=== PATIENT | male | born 1965 | race Caucasian/White ===

== ENCOUNTER 2017-06-07 03:10 | Emergency (ER) | payer BC, OTHER ==
[~2017-06-07] VITALS: Ht 172.7 cm; Wt 89.4 kg
[~2017-06-07 03:10] MED LIST: CETI10TA84 PO; MOME50SP5; PANT40TA PO; red yeast rice PO
[2017-06-07 03:19] VITALS: TEMP 36.6; Ht 172.7 cm; Wt 89.4 kg
[2017-06-07] MEDS ORDERED: ALLO300T2 PO (04:01)
[2017-06-07] MEDS ORDERED: MONT1TAB3 PO (04:01)
[2017-06-07] MEDS ORDERED: FEXO1TAB49 PO (04:01)
[2017-06-07] MEDS ORDERED: REDCAP2 PO (04:03)
[2017-06-07] MEDS ORDERED: AZEL0.056 NAE (04:03)
[2017-06-07] MEDS ORDERED: MOME6000 NAE (04:07)
[2017-06-07] MEDS ORDERED: PRED20TA2 PO (04:11)
[2017-06-07] MEDS ORDERED: DICL75TA2 PO (04:11)
[2017-06-07 04:20] VITALS: BP 132/85; PULSE 61; O2SAT 95
--- NOTE | 2017-06-07 07:15 | DIAGNOSTIC IMAGING REPORT ---
RIGHT KNEE 3 VIEWS CLINICAL HISTORY: Right knee pain. FINDINGS: AP, crosstable lateral, and sunrise views of the right knee are compared to study dated 09/15/2013. The skeletal structures are well mineralized. No fracture is seen. The joint spaces of the knee are well-maintained. Patellar enthesophytes are identified. There is no large joint effusion. The overlying soft tissues are normal as imaged. IMPRESSION: No acute bony abnormality is identified in the right knee. Electronically signed by: Favian Escalona M.D. 06/07/2017 7:13 AM Dictated Date/Time: 06/07/2017 7:12 AM
--- NOTE | 2017-06-08 02:45 | EMERGENCY ROOM VISIT NOTE ---
ED Visit Note First contact with patient: 03:24 CHIEF COMPLAINT: knee pain HISTORY OF PRESENT ILLNESS: This 52-year-old male patient presents to the emergency department with complaint of right knee pain worsening over the past one to 2 days. Patient states that his symptoms worsened after lifting weights and going up and down stairs. He does not recall distinct trauma. The patient denies any other injuries besides their knee. The patient is without swelling or bruising. There is pain medially. They rate the pain as dull and 4/10. The patient states they are able to walk on it. No numbness or tingling. No previous injuries to this knee. No ankle, foot or hip pain. REVIEW OF SYSTEMS: A 6 system review of systems was completed with positives and pertinent negatives listed in the HPI. ALLERGIES: See EMR MEDICATIONS: See EMR PMH: No pertinent chronic medical disease SOCIAL HISTORY: Lives locally PHYSICAL EXAM: Vital Signs: Reviewed Nurse's notes, vital signs stable. GENERAL : White male, no acute distress, but appears in pain, well-developed, well- nourished. MENTAL STATUS: Alert, oriented to person place and time, and cooperative. MUSCULOSKELETAL: The right knee is no swollen. There is no ecchymosis. There is no joint effusion present. The patient is tender medially. There is medial joint line tenderness. The patella does not subluxate. Range of motion is normal. Strength of the quads and hamstrings is 5/ 5. Afua's is negative. Umm's and Anterior Drawer tests are negative. There is no laxity with varus and valgus stressing. The foot and toes are warm and well-perfused. Dorsalis pedis pulse 2+. Sensation to pain and light touch is intact. Capillary refill less than 2 seconds. RIGHT KNEE 3 VIEWS CLINICAL HISTORY: Right knee pain. FINDINGS: AP, crosstable lateral, and sunrise views of the right knee are compared to study dated 09/15/2013. The skeletal structures are well mineralized. No fracture is seen. The joint spaces of the knee are well-maintained. Patellar enthesophytes are identified. There is no large joint effusion. The overlying soft tissues are normal as imaged. IMPRESSION: No acute bony abnormality is identified in the right knee EMERGENCY DEPARTMENT COURSE: Physical exam and history were performed. Nursing notes and EMR were reviewed. The patient appears to have right knee pain after exertional exercise the past few days. X-rays were obtained and does not show evidence of acute fracture or dislocation per my radiology's interpretation. The patient will be given conservative care instructions and asked follow-up with orthopedics with any ongoing or persistent symptoms. I did offer brace and crutches, but the patient declined. He was otherwise invited back to ER with any new, worsening, or concerning symptoms. Problem List Medical Problems: (1) Asthma Status: Chronic (2) Gout Status: Chronic Current/Historical Medications Scheduled Allopurinol (Zyloprim), 300 MG PO DAILY Azelastine HCl (Azelastine HCl), 2 SPRAYS PAIGE BID Diclofenac Sodium (Voltaren), 75 MG PO BID Fexofenadine Hcl (Catina Allergy), 180 MG PO DAILY Mometasone Furoate (Nasal) (Mometasone Furoate), 2 SPRAYS PAIGE BID Montelukast Sodium (Singulair), 10 MG PO DAILY Pantoprazole (Protonix), 40 MG PO DAILY Prednisone (Prednisone Tab), 2 TAB PO DAILY Red Yeast Rice Extract (Red Yeast Rice), 2 CAP PO BID Allergies Coded Allergies: Penicillins (Verified Allergy, Mild, 06/07/17) Azithromycin (Unverified Allergy, Unknown, RASH, 06/07/17) Quinolones (Unverified Allergy, Unknown, "AFFECTED TENDONS", 06/07/17) Vital Signs Date Time Temp Pulse Resp B/P (MAP) Pulse Ox O2 Delivery O2 Flow Rate FiO2 06/07/17 04:20 61 20 132/85 95 06/07/17 03:19 36.6 64 18 127/87 96 Room Air Medications Administered Medications (Trade) Dose Ordered Sig/Zahira Route Start Time Stop Time Status Last Admin Dose Admin Prednisone (PredniSONE TAB) 40 mg NOW STAT PO 06/07/17 04:10 06/07/17 04:11 DC 06/07/17 04:18 40 MG Departure Information Impression Primary Impression: Right knee pain Dispostion Home / Self-Care Condition GOOD Prescriptions Diclofenac Sodium (VOLTAREN) 75 Mg Tab 75 MG PO BID, #30 TAB Prov: Royce Lopez PA-C 06/07/17 Prednisone (Prednisone Tab) 20 Mg Tab 2 TAB PO DAILY for 3 Days, #6 TAB Prov: Royce Lopez PA-C 06/07/17 Forms HOME CARE DOCUMENTATION FORM, IMPORTANT VISIT INFORMATION Patient Instructions My [facility] Additional Instructions You were seen and evaluated today on an emergency basis only. This is not a substitute for, or an effort to provide, complete comprehensive medical care. It is not possible to recognize and treat all injuries or illnesses in a single emergency department visit. For this reason it is recommended that you followup with [facility] orthopedics with any ongoing or persistent symptoms over the next 1 to 2 weeks. Take prednisone daily for the next 4 days Take diclofenac 75 mg twice daily with food for the next 7 days. Rest, ice, and elevate your knee for additional relief of symptoms. You are welcome to return to the emergency department anytime with new, worsening, or concerning symptoms.
== END 2017-06-07 04:21 | disposition home or self-care (01) ==
LOC: C.EDB 03:12 → C.EDA 04:21
DX: M25.561 Pain in right knee (principal); J45.909 Unspecified asthma, uncomplicated; M10.9 Gout, unspecified; Z88.0 Allergy status to penicillin; Z88.1 Allergy status to other antibiotic agents

== ENCOUNTER → 2017-06-29 | Outpatient (CLI) | payer OTHER ==
[~2017-06-29] MED LIST changes: +ALLO300T2 PO; +AZEL0.056 NAE; -CETI10TA84 PO; +FEXO1TAB49 PO; -MOME50SP5; +MOME6000 NAE; +MONT1TAB3 PO; +REDCAP2 PO; -red yeast rice PO
--- NOTE | 2017-06-29 09:00 | DIAGNOSTIC IMAGING REPORT ---
ABDOMEN LIMITED (US) HISTORY: Liver function tests ELEVATED LFT'S. COMPARISON: None. FINDINGS: Pancreas: Poorly defined due to overlying bowel content Liver: Heterogeneous internal architecture with components of fatty infiltration Gallbladder: No gallbladder wall thickening. No gallstones. CBD: 4 mm Right kidney: No hydronephrosis. IMPRESSION: Fatty infiltration of liver. Otherwise negative study. Normal caliber bile duct. The above report was generated using voice recognition software. It may contain grammatical, syntax or spelling errors. Electronically signed by: Nikos Jacome M.D. 06/29/2017 8:59 AM Dictated Date/Time: 06/29/2017 8:58 AM
== END | disposition home or self-care (01) ==
LOC: C.ULTR 07:48
PROVIDERS: ATTEND Family Medicine
DX: R79.89 Other specified abnormal findings of blood chemistry (principal)